=== PATIENT | female | born 1950 | race Caucasian/White ===

== ENCOUNTER 2021-03-28 13:45 | Inpatient (IN) | payer MEDICARE, OTHER, SELFPAY ==
[2021-03-28] VITALS (100 sets, daily range): BP systolic 119–158; BP diastolic 58–119; PULSE 66–127; RESP 12–29; TEMP 37.1; O2SAT 22–100; BMI 27.0
--- NOTE | 2021-03-28 13:47 | XACV_ITS ---
Exam Room: 2 Ht: 173 cm Wt: 81 kg BSA: 1.98 m2 Gender: Female : 1950 Exam Priority: Routine Procedure(s): Procedure Description: Diagnostic procedure Procedure Description: PCI procedure Procedure Description: Drug Eluting Coronary Stent Procedure Description: PTCA Procedure Description: Miscellaneous Procedure Description: ACT Procedure Description: Coronary Angiography Byron BLANCAS; Diagnostic Cath Status: Emergency Diagnostic Findings * Left Main has no disease. * Left Anterior Descending has no disease. * Circumflex has no disease. * Mid Right Coronary Artery: total occlusion, CHITO: 0 flow. * Coronary angiography shows right dominance. PCI Status: Emergency Interventional Findings * Mid Right Coronary Artery: 100% stenosis treated with a AB MINI TREK 2.00X15 RX BALLOON, MDLuz Castro JAYCEE 2.75X22 LUIS ALFREDO, and MDLuz HARDY EUPHORA RX [id number] BALLOON. 0% residual stenosis, CHITO: 3 flow. Conclusions 1. There is total occlusion coronary artery disease with one vessel disease. 2. Mid Right Coronary Artery was treated with a Balloon, Drug Eluting Stent, and Balloon. Recommendations * 1-Return to inpatient for close monitoring and routine cath care2-Risk factor modification for secondary prevention3-Statin and aspirin 81 mg life--long, if tolerated4-Patient was pre-loaded with 600 mg of Plavix, continue Plavix 75mg p.o. daily for at least one year. We will assess at the end of one year again to continue if further or not5-Continue optimal medical management6-Follow up with Dr. Matthews in four weeks and your primary care in 10 days. Interventional RX Recommendation: PCI w/o planned CABG Pressures Phase:Rest AO : 82 / 46 ( 60 ) @ 1:44:00 PM Clinical Evaluation EBL: 5mL-10mL Procedural Details Procedure Consent Obtained. Identified patient by full name and date of as verbalized by the patient/guarantor. Does the consent match the physician's order: Yes. Accurate & Complete Informed Consent: Yes. Visualize and Verify Site with Patient/Guarantor: N/A. Relevant Radiology Images available: N/A. Pre-op teaching completed and patient verbalized understanding. The risks, benefits, and alternatives of sedation and/or procedure were discussed by physician. The patient agrees to continue. Procedure started. [facility] Clinical Fraility Score: 4: Vulnerable. Commercial Service Technician Indications: ACS <= 24 hours. Chest Pain Symptom Assessment: Atypical Angina. Correct patient, site and procedure confirmed by cath team. Current diagnosis: STEMI. PERRLA. Strong, equal hand sas etl developer bilaterally. Lungs clear x 5 lobes. IV Site on Arrival: 20 gauge in the left anticubital. Oxygen started at 2liters/min via nasal canula. right radial was prepped with chloroprep then draped in the usual sterile fashion. right groin was prepped with chloroprep then draped in the usual sterile fashion. Baseline sample Acquired. HR: 66 BPM. Physician notified. Physician arrived. Physician scrubbed in. Immediate Pre-Procedure Time Out. Correct Patient: Yes; Correct Procedure: Yes; Correct Site: Yes; Correct Patient Position: Yes; Correct Supplies: Yes; Dried Flammable Prep: Yes; Blood Products Available: n/a. Lidocaine 1% infiltrated to the right radial. Arterial access obtained. PCI Indication: STEMI. Patient's family updated. 6 ivorian JR 4 SH guide catheter was inserted over the wire. ACT drawn. Results 147 seconds. Therapeutic limits - pre-heparin administration 90-150 seconds and monitoring heparin during a vascular procedure >250 seconds. Admit Source: Emergency department. Multiple views taken of right coronary artery. [place] guidewire was advanced through the guide catheter. Unable to cross lesion, cougar wire removed. Runthrough guidewire was advanced through the guide catheter to lesion in the mid RCA. [place] guidewire was advanced through the guide catheter to lesion in the distal RCA. Inflation number : 1 A AB MINI TREK 2.00X15 RX BALLOON was prepped and advanced across the Mid RCA , then inflated to 15 PRASHANT for 0:10seconds. Inflation number: 2 The AB MINI TREK 2.00X15 RX BALLOON was reinflated across the Mid RCA, to 15 PRASHANT for 0:10 seconds. Results checked. Balloon out. Balloon inserted to lesion in the mid LAD. Stent inserted to lesion in the mid RCA. Inflation Number : 3 A MDT R JAYCEE 2.75X22 LUIS ALFREDO -Lot Number# [id number] Exp 08/02/2022 was prepped and advanced across the Mid RCA. The stent was deployed at 16 PRASHANT for 0:17 seconds. Runthrough wire removed. Inflation number : 4 A MDT NC EUPHORA RX [id number] BALLOON was prepped and advanced across the Mid RCA , then inflated to 12 PRASHANT for 0:03 seconds. Inflation number: 5 The MDT NC EUPHORA RX 3.00Z17MH BALLOON was reinflated across the Mid RCA, to 12 PRASHANT for 0:05 seconds. Inflation number: 6 The MDT NC EUPHORA RX 3.97K06SS BALLOON was reinflated across the Mid RCA, to 12 PRASHANT for 0:02 seconds. Balloon out. Results checked. Stent balloon out over wire. Wire out. Balloon inserted to lesion in the mid LAD. Guide catheter out. A 5 ivorian JL4 catheter in over wire. Multiple views taken of left coronary artery. Catheter out. ACT drawn. Results 489 seconds. Therapeutic limits - pre-heparin administration 90-150 seconds and monitoring heparin during a vascular procedure >250 seconds. Wire out. A TR Band was successful obtaining hemostatsis at the Right Radial artery insertion site. PERRLA. Strong, equal hand sas etl developer bilaterally. No VTE prophylaxis required. Medication's Wasted: Lidocaine 1% = 18 mL. Medication's Wasted: Nitro = 49.8 mg. Medication's Wasted: Heparin = 2000 u. Total IV fluids: 250 mL. Post-op diagnosis: STEMI. Complications: none. Estimated blood loss: 5mL-10mL. Procedure completed. Patient transferred by bed to ICU. Vital chart was stopped. Access Site Site: Right Radial artery Sheath Size: 6 Fr Hemostasis Method: TR Band Hemostasis Success: Successful Procedure Medications Start: 2:21 PM Stop: 2:21 PM Medication: Fentanyl Amount: 50 mcg Start: 2:21 PM Stop: 2:21 PM Medication: Versed Amount: 1 mg Route: I.V. Start: 2:24 PM Stop: 2:24 PM Medication: Nitrogylcerin Amount: 200 mcg Route: I.A. Start: 2:31 PM Stop: 2:31 PM Medication: Heparin Amount: 4000 units Route: I.V. Start: 2:34 PM Stop: 2:34 PM Medication: Aggrastat 12.5 mg/250 mL Amount: 40 ml Route: I.V. bolus Start: 2:44 PM Stop: 2:44 PM Medication: 0.9% Saline Amount: 250 ml Route: I.V. bolus I, the attending physician, have reviewed and verified all procedure medications. Yes, all medications given per verbal order History/Risk Factors Hypertension: Yes Dyslipidemia: Yes Peripheral Arterial Disease (PAD): No Myocardial Infarction (SD): No Obesity: Yes Renal Disease: No Tobacco Use: Former Prior Interventions PCI: Yes CABG: No Valve Surgery: No Date of PCI: 05/30/1998 Report Signatures Finalized by Lucho Matthews MD on 04/12/2021 06:39 PM
--- NOTE | 2021-03-28 13:49 | ECG_ITS ---
[facility] Test Date: 2021-03-28 Pat Name: Kathy Mead Department: Room: Gender: Female Health And Safety Inspector: : 1950 Requested By: Javed Johnson Order Number: [id number] Reading MD: YOGESH CANTOR Measurements Intervals [place] Rate: 72 P: 51 CA: 174 QRS: 36 QRSD: 82 T: 88 QT: 374 QTc: 409 Interpretive Statements SINUS RHYTHM ST ELEVATION, CONSIDER LATERAL INJURY [MARKED ST ELEVATION W/O NORMALLY INFLECTED T-WAVE IN I/aVL/V5/V6] MARKED ST ELEVATION, CONSIDER INFERIOR INJURY [MARKED ST ELEVATION W/O NORMALLY INFLECTED T-WAVE IN II/aVF] ACUTE LA No previous ECG available for comparison Electronically Signed On 03-30-2021 0:11:53 CDT by YOGESH CANTOR [id number]
--- NOTE | 2021-03-28 13:53 | W.ED.CHESTPA ---
HPI - Chest Pain General: Chief Complaint: Chest Pain Stated Complaint: STEMI Time Seen by Provider: 03/28/21 13:48 History of Present Illness: HPI narrative: Ms. Mead is a 70-year-old lady with history of hypertension and possible hyperlipidemia who presents emergency department due to chest pain. She presents via EMS as a STEMI activation. Symptom onset was acute at approximately 1:10 PM. She notes chest pressure in the middle of her chest with radiation to left arm and left jaw. No other typical cardiac features associated with chest pain. Intensity of symptoms is moderate to severe. No improvement with nitro or Nitropaste. She did receive 2 doses of sublingual nitro and 1 inch of Nitropaste. She received 324 of aspirin. She was placed on supplemental oxygen for comfort though was not hypoxemic. No other specific exacerbating relieving factors. No history of similar. Recent history is notable for right hip surgery. This was approximately 1 week ago, expected postoperative course. She has been on Xarelto and has not missed any doses for prophylaxis secondary to surgery. History is otherwise limited by acuity of condition. Review of Systems General: Reports: 10 or more systems reviewed and unremarkable except in HPI and below [facility]: Medical History (Updated 03/30/21 @ 00:01 by ) Essential hypertension Surgical History (Updated 03/30/21 @ 00:01 by ) History of hip surgery Physical Exam Narrative: EXAM NARRATIVE: GENERAL/CONSTITUTIONAL - well-appearing. Uncomfortable due to chest pain Eyes - PERRL, no conjunctival injection ENMT - Atraumatic external nose and ears. Moist mucous membranes NECK - supple. trachea midline CARDIOVASCULAR - regular rate and rhythm. Peripheral pulses 2+ and equal RESPIRATORY -clear to auscultation bilaterally. No retractions or accessory muscle use. ABDOMEN/GI - Nontender/Nondistended. MSK - Extremities without obvious deformity or tenderness to palpation SKIN - Warm, Dry, mild pallor NEURO - alert and appropriately oriented. Moves all extremities equally. Course ED course: - Patient was seen and evaluated by me at bedside. STEMI activation by EMS. - Patient placed on cardiac monitors, IV access obtained - Initial evaluation notable for exam as noted above - Treatment per protocol - Cardiology at bedside for evaluation for STEMI - Patient to be taken emergently to [facility] - Transported to [facility] emergently without acute decompensation or further intervention required in the emergency department Vital Signs: Vital signs: Vital Signs Temperature 97.8 F 03/29/21 15:55 Pulse Rate 95 03/29/21 15:55 Respiratory Rate 18 03/29/21 15:55 Blood Pressure 149/77 03/29/21 15:55 Pulse Oximetry 98 03/29/21 15:55 MDM - Chest Pain Medical Records: Attestation: I reviewed the patient's medical records. Lab Data: Attestation: I reviewed the patient's lab results. Labs: Lab Results 03/28/21 03/28/21 03/28/21 13:48 13:48 13:48 WBC 11.4 10^3/uL H 10 ^3/uL (4.0-10.0) RBC 3.59 10^6/uL L 10 ^6/uL (4.1-5.3) Hgb 10.6 g/dL L g/dL (11.5-15.3) Hct 34.5 % L % (37.0-47.0) MCV 96.1 fl fl (81-99) MCH 29.5 pg pg (28.0-34.0) MCHC 30.7 g/dL g/dL (30.0-36.0) RDW 13.0 % % (12.1-15.1) Plt Count 490 10^3/cmm H 10 ^3/cmm (130-400) MPV 8.9 fL fL (7.4-10.4) Neut % (Auto) 69.5 % % Lymph % (Auto) 19.1 % % Wetzel % (Auto) 8.9 % % Eos % (Auto) 1.6 % % Baso % (Auto) 0.5 % % Neut # (Auto) 7.91 10^3/uL H 10 ^3/uL (1.8-7.7) Lymph # (Auto) 2.2 10^3/uL 10^3/ uL (0.8-4.8) Wetzel # (Auto) 1.0 10^3/uL H 10^ 3/uL (0.2-0.9) Eos # (Auto) 0.2 10^3/uL 10^3/ uL (0.0-0.8) Baso # (Auto) 0.1 10^3/uL 10^3/ uL (0.0-0.1) Nucleated RBC % (a uto) 0 % % Nucleated RBCs # 0.0 /100WBC /100W BC PT 13.70 SECONDS SEC ONDS (12.1-14.9) INR 1.02 (0.8-1.2) APTT 58.7 SECONDS H SE CONDS (23.9-36.7) Sodium 141 mmol/L mmol/L (136-145) Potassium 4.2 mmol/L mmol/L (3.5-5.1) Chloride 103 mmol/L mmol/L (98-107) Carbon Dioxide 25 mmol/L mmol/L (22-29) Anion Gap 17.2 (5-19) BUN 13 mg/dL mg/dL (8-23) Creatinine 0.5 mg/dL mg/dL (0.5-0.9) GFR Calculation 122.0 mL/min mL/m in (90-130) Glucose 102 mg/dL mg/dL (65-115) Calculated Osmolal ity 292 mOsm/kg mOsm/ kg (285-295) Calcium 9.4 mg/dL mg/dL (8.5-10.5) Total Bilirubin 0.5 mg/dL mg/dL (0.15-1.2) AST 30 U/L U/L (0-32) ALT 31 U/L U/L (0-33) Alkaline Phosphata se 143 IU/L H IU/L (35-105) Troponin T Baselin e Total Protein 6.5 g/dL L g/dL (6.6-8.7) Albumin 3.7 g/dL g/dL (3.5-5.2) Globulin 2.8 g/dL g/dL (1.3-4.6) 03/28/21 13:48 WBC RBC Hgb Hct MCV MCH MCHC RDW Plt Count MPV Neut % (Auto) Lymph % (Auto) Wetzel % (Auto) Eos % (Auto) Baso % (Auto) Neut # (Auto) Lymph # (Auto) Wetzel # (Auto) Eos # (Auto) Baso # (Auto) Nucleated RBC % (a uto) Nucleated RBCs # PT INR APTT Sodium Potassium Chloride Carbon Dioxide Anion Gap BUN Creatinine GFR Calculation Glucose Calculated Osmolal ity Calcium Total Bilirubin AST ALT Alkaline Phosphata se Troponin T Baselin e 153 ng/L H* ng/L (0-10) Total Protein Albumin Globulin EKG Data^: EKG 1: Attestation: I personally reviewed and interpreted this EKG as follows: EKG interpretation date: 03/28/21 EKG interpretation time: 13:50 Ischemic changes: acute STEMI Interpretation: Twelve-lead EKG shows a regular rhythm at a rate of 72 CO interval 174, QRS duration 82, QTc 397 Normal axis Interpretation: Acute STEMI, inferior region with reciprocal changes Discharge Plan Discharge Patient Disposition: Admitted As Inpatient Admit Provider: Lucho Matthews Condition: Stable Discharge Diet: Cardiac Coding Level of Care Code ED Real Estate Loan Processor for Chg Joann
[2021-03-28 14:01] LABS: Basophils # 0.1 10^3/uL (0.0-0.1); Basophils % 0.5 %; Eosinophils # 0.2 10^3/uL (0.0-0.8); Eosinophils % 1.6 %; Hematocrit 34.5 % (37.0-47.0); Hemoglobin 10.6 g/dL (11.5-15.3); Lymphocytes # 2.2 10^3/uL (0.8-4.8); Lymphocytes % 19.1 %; Mean Corpuscular HGB Conc 30.7 g/dL (30.0-36.0); Mean Corpuscular Hemoglobin 29.5 pg (28.0-34.0); Mean Corpuscular Volume 96.1 fl (81-99); Mean Platelet Volume 8.9 fL (7.4-10.4); Monocytes % 8.9 %; Neutrophils # 7.91 10^3/uL (1.8-7.7); Neutrophils % 69.5 %; Nucleated Red Blood Cells % 0 %; Platelet Count 490 10^3/cmm (130-400); Red Blood Count 3.59 10^6/uL (4.1-5.3); White Blood Count 11.4 10^3/uL (4.0-10.0)
[2021-03-28] MEDS: sodium chloride 0.9% 1,000 ML 999 ML IV (14:01)
[2021-03-28] MEDS: fentaNYL 50 mcg/mL INJ 2mL IVP (14:01)
[2021-03-28] MEDS: heparin 5,000 unit/mL INJ 1 mL 4000 UNIT IVP (14:02)
[2021-03-28] MEDS: clopidogrel 300 mg Tablet 600 MG PO (14:02)
--- NOTE | 2021-03-28 14:09 | PM.HP ---
Providers/Chief Complaint Chief Complaint: STEMI History of Present Illness Kathy Mead is a 70 year old female past medical history significant for coronary artery disease status post history of stent to RCA in 1998, hypertension hyperlipidemia history of tobacco abuse in the past quit many years ago few days ago she underwent hip surgery for a broken hip today while getting out of the shower she started noticing chest pain which increased in intensity frequency and duration minute become constant she called 911 initial strip recorded by EMS showed ST elevation in the inferior lead with reciprocal changes and bradycardia. According to patient she is on rivaroxaban after hip surgery last dose taken was yesterday. She was given 325 mg of aspirin. We will load her with Plavix, given 4000 mg of heparin. I will take her directly to the [facility] it appeared to me that she has a occluded RCA. Medications/Allergies Allergies Allergy/AdvReac Type Severity Reaction Status Date / Time codeine Allergy ALGY-Anaphy Verified 03/28/21 13:50 laxis PFSH Acute PFSH: Medical History (Updated 03/28/21 @ 14:12 by Lucho Matthews MD) Essential hypertension Vitals/I&O/Wt Last Vital Signs Temp 98.7 F 03/28/21 13:50 Pulse 67 03/28/21 13:57 Resp 24 H 03/28/21 14:01 BP 119/81 03/28/21 13:57 Pulse Ox 97 03/28/21 13:57 Weight last 48 hrs Weight 178 lb Physical Exam Narrative: EXAM NARRATIVE: GENERAL: Patient is alert, awake and oriented x3. Patient is moderate distress NECK: No jugular vein distension. HEENT: No cyanosis. No icterus. No pallor. HEART: Regular S1 and S2. No murmur, rub or gallop. LUNGS: Clear to auscultate bilaterally. ABDOMEN: Soft, nontender and nondistended. Positive bowel sounds. No guarding, rebound or tenderness. CENTRAL NERVOUS SYSTEM: Grossly nonfocal. EXTREMITIES: Lower extremities without edema bilaterally. Pulses palpable in the lower extremities, both dorsalis pedis and posterior tibial. Data : 03/28/21 13:48 03/28/21 13:48 A&P Assessment and plan (1) ST elevation myocardial infarction (STEMI) of inferior wall: Patient has inferior wall ST elevation NV. We will take her to the [facility] urgently. She was bradycardic initially but appeared to be in sinus rhythm now. Patient has been explained all risk benefit and alternative for the procedure by myself. She understand risk of major minor bleed urgent emergent surgery including bypass and vascular, risk of stroke head bleed GI bleed risk for transfusion contrast-induced nephropathy pseudoaneurysm hematoma and infection. She is a candidate for DAPT. She denies any prior history of bleeding. Further plan will be devised as per progress of the patient Status: Acute (2) Essential hypertension: At the moment it is stable and well-controlled Status: Acute (3) History of hip surgery: As per surgical instruction. Status: Acute Attestations Medical Necessity Statement*: I am expecting her stay to cross more than 2 midnights Coding Level of Care Code New Pt Acute Patient Scheduler for baljit David Patient Type New History Comprehensive Exam Comprehensive Medical Decision Making High Complexity Diagnoses ST elevation myocardial infarction (STEMI) of inferior wall I21.19 Essential hypertension I10 History of hip surgery Z98.890
--- NOTE | 2021-03-28 14:10 | PC.NURSE ---
patient to cathlab at this time.
[2021-03-28 14:17] LABS: INR 1.02 (0.8-1.2)
[2021-03-28 14:19] LABS: Partial Thromboplastin Time 58.7 SECONDS (23.9-36.7)
[2021-03-28 14:23] LABS: Alanine Aminotransferase 31 U/L (0-33); Albumin Level 3.7 g/dL (3.5-5.2); Alkaline Phosphatase 143 IU/L (35-105); Anion Gap 17.2 (5-19); Aspartate Amino Transferase 30 U/L (0-32); Blood Urea Nitrogen 13 mg/dL (8-23); Calcium 9.4 mg/dL (8.5-10.5); Carbon Dioxide 25 mmol/L (22-29); Chloride 103 mmol/L (98-107); Globulin 2.8 g/dL (1.3-4.6); Glucose 102 mg/dL (65-115); Osmolality Calculated 292 mOsm/kg (285-295); Potassium 4.2 mmol/L (3.5-5.1); Sodium 141 mmol/L (136-145); Total Bilirubin 0.5 mg/dL (0.15-1.2); Total Protein 6.5 g/dL (6.6-8.7)
[2021-03-28 14:25] LABS: Troponin(5th) Baseline 153 ng/L (0-10)
[2021-03-28] MEDS: sodium chloride 0.9% 1,000 ML 100 ML IV (15:48)
--- NOTE | 2021-03-28 15:49 | ECG_ITS ---
[facility] Test Date: 2021-03-28 Pat Name: Kathy Mead Department: Room: ICU01 Gender: Female Social Service Manager: : 1950 Requested By: Javed Johnson Order Number: [id number] Reading MD: YOGESH CANTOR Measurements Intervals [place] Rate: 76 P: 12 WV: 176 QRS: 8 QRSD: 85 T: 31 QT: 398 QTc: 449 Interpretive Statements SINUS RHYTHM PROBABLE INFERIOR MYOCARDIAL INFARCTION , OF INDETERMINATE AGE [35 ms Q WAVE IN II/aVF] Compared to ECG 03/28/2021 13:49:01 ST (T wave) deviation no longer present Myocardial infarct finding still present Electronically Signed On 03-30-2021 0:17:41 CDT by YOGESH CANTOR [id number]
[2021-03-28] MEDS: atorvastatin 40 mg Tablet PO (15:52)
--- NOTE | 2021-03-28 15:56 | PC.NURSE ---
1525 Pt arrived to ICU 1 via bed with cath lab radiological technologist staff at bedside. PT connected to ICU monitor. Pt AAOx4, makes all needs known. TR band in place to R radial. Area c/d/i, pulses palpable. Orders to release pressure starting around 1700 from TR band. IVF infusing at 150ml/h, decreased to 100ml/h per MD orders. Pt able to answer all questions. Glasses, dentures and wallet to be kept at bedside. Pt advised to send wallet and medications home but would like to keep wallet with her. Dressing to R hip from hip surgery approx 1 week ago, c/d/i. Pt denies CP, c/o mild hip pain 07/09. No other issues noted. Will monitor.
[2021-03-28 16:58] LABS: Troponin 5 2HR 470.7 ng/L (0-10); Troponin 5 2HR Delta 317.7 ABS# (0-10)
[2021-03-28] MEDS: acetaminophen 325 mg Tablet 650 MG PO (17:49)
--- NOTE | 2021-03-28 17:55 | PC.NURSE ---
Shift Note Frequent safety and comfort rounds continue. Orders and/or nursing care completed as indicated. Patient monitored for response to intervention and treatment(s). Education provide includes treatment plan, TR band info, and medication regimen. Pt verbalizes understanding. Vital sign charted per flowsheet. Assessment of TR band charted, 2ml air let out of band q15min per protocol. No issues noted. Will continue to monitor.
--- NOTE | 2021-03-28 18:56 | PC.NURSE ---
TR band removed at this time. No bleeding or hematoma noted
[2021-03-28 20:44] LABS: Troponin 5 6HR 1120 ng/L (0-10)
[2021-03-28 20:45] LABS: Troponin 5 6HR Delta 967 ng/L (0-12)
[2021-03-29] VITALS (37 sets, daily range): BP systolic 134–156; BP diastolic 62–92; PULSE 76–96; RESP 9–27; TEMP 36.6–37; O2SAT 92–99
[2021-03-29] MEDS: sodium chloride 0.9% 1,000 ML 100 ML IV (00:34)
[2021-03-29 05:09] LABS: Basophils # 0.1 10^3/uL (0.0-0.1); Basophils % 0.6 %; Eosinophils # 0.2 10^3/uL (0.0-0.8); Hematocrit 29.1 % (37.0-47.0); Hemoglobin 9.1 g/dL (11.5-15.3); Lymphocytes # 1.7 10^3/uL (0.8-4.8); Lymphocytes % 18.5 %; Mean Corpuscular HGB Conc 31.3 g/dL (30.0-36.0); Monocytes # 0.8 10^3/uL (0.2-0.9); Monocytes % 8.8 %; Neutrophils # 6.27 10^3/uL (1.8-7.7); Neutrophils % 69.7 %; Nucleated Red Blood Cells % 0 %; Platelet Count 281 10^3/cmm (130-400); Red Blood Count 3.03 10^6/uL (4.1-5.3); Red Cell Distribution Width 13.2 % (12.1-15.1)
[2021-03-29 05:26] LABS: Anion Gap 13.2 (5-19); Blood Urea Nitrogen 13 mg/dL (8-23); Calcium 9.1 mg/dL (8.5-10.5); Carbon Dioxide 24 mmol/L (22-29); Chloride 106 mmol/L (98-107); Glucose 91 mg/dL (65-115); Osmolality Calculated 288 mOsm/kg (285-295); Potassium 4.2 mmol/L (3.5-5.1); Sodium 139 mmol/L (136-145)
[2021-03-29 05:55] LABS: Troponin T (5th) Once 877 ng/L (0-10)
--- NOTE | 2021-03-29 06:22 | PC.NURSE ---
Shift Note Frequent safety and comfort rounds continue. Orders and/or nursing care completed as indicated. Patient monitored for response to intervention and treatment(s). Education provided includes medications with side effects, fall safety, post-op care and precautions, S/S to report. Patient and/or vaccine customer representative verbalized understanding of education. Patient without SOB and CP, radial site soft, without redness or warmth. Patient up to BSC to void. Will continue to monitor.
[2021-03-29] MEDS: clopidogrel 75 mg Tablet PO (08:31)
[2021-03-29] MEDS: aspirin 81 mg EC Tablet PO (08:31)
--- NOTE | 2021-03-29 09:33 | PC.NURSE ---
daughters called concerned about health and mental status and care of significant other at home toward her .. call refered to high school social studies tutor at this time
--- NOTE | 2021-03-29 11:03 | USR_ITS ---
PROCEDURE INFORMATION: Exam: US Duplex Lower Extremity Veins, Bilateral Exam date and time: 03/29/2021 11:03 AM Age: 70 years old Clinical indication: Pain; Leg, upper; Prior surgery; Surgery date: Post-operative (0-2 days); Surgery type: Right hip replacement; Additional info: Check clot/ dvt, order clarified with Dr copeland TECHNIQUE: Imaging protocol: Real-time duplex ultrasound of the extremities with 2-D ho scale, color Doppler flow and spectral waveform analysis with image documentation. Complete exam focused on the bilateral lower extremity veins. COMPARISON: US ROR venous duplex LE LT 04/01/2016 1:18 PM FINDINGS: Right deep veins: Unremarkable. The common femoral, femoral, proximal profunda femoral, popliteal, posterior tibial and peroneal veins are patent without thrombus. Normal Doppler waveforms. Normal compressibility and/or augmentation response. Right superficial veins: Saphenofemoral junction is patent without thrombus. Left deep veins: Unremarkable. The common femoral, femoral, proximal profunda femoral, popliteal, posterior tibial and peroneal veins are patent without thrombus. Normal Doppler waveforms. Normal compressibility and/or augmentation response. Left superficial veins: Saphenofemoral junction is patent without thrombus. Soft tissues: Unremarkable. US/[place] [id number] IMPRESSION: No sonographic evidence of deep vein thrombosis. Radiation Dose CTDIVOL = (mGy): DLP = (mGy-cm)
--- NOTE | 2021-03-29 11:05 | USCV_ITS ---
Kathy Mead Age: 70 Gender: F : 1950 Exam Date: 03/29/2021 12:59 Ordering Phys: Lucho Matthews MD ([email or web address]) Technologist: Maddie Downey Exam Location: [facility] – [place] Indication: POST STEMI BP: / HR: Rhythm: Sinus Technical Quality: Adequate MEASUREMENTS (Male / Female) Normal Values 2D ECHO LV Diastolic Diameter PLAX 2.5 cm 4.2 - 5.9 / 3.9 - 5.3 cm LV Systolic Diameter PLAX 1.7 cm LV Chamber Size 3.8 cm IVS Diastolic Thickness 1.5 cm 0.6 - 1.0 / 0.6 - 0.9 cm IVS Systolic Thickness 1.9 cm LVPW Diastolic Thickness 0.9 cm 0.6 - 1.0 / 0.6 - 0.9 cm LVPW Systolic Thickness 0.9 cm RV Chamber Size 2.7 cm LVOT Diameter 1.9 cm LV Ejection Fraction 2D Teich 61.1 % LV Ejection Fraction MOD 2C 70.3 % LV Ejection Fraction 2C AL 70.0 % LA Diameter 2.7 cm LA Width 2.8 cm LA Height 5.5 cm RA Width 2.9 cm RA Height 4.7 cm Aorta at Sinotubular Diameter 2.3 cm M-MODE LV Diastolic Diameter MM 4.8 cm 4.2 - 5.9 / 3.9 - 5.3 cm LV Systolic Diameter MM 3.1 cm LV Ejection Fraction MM Teich 64.2 % IVS Diastolic Thickness MM 1.2 cm 0.6 - 1.0 / 0.6 - 0.9 cm IVS Systolic Thickness MM 1.4 cm LVPW Diastolic Thickness MM 1.2 cm 0.6 - 1.0 / 0.6 - 0.9 cm LVPW Systolic Thickness MM 1.7 cm RV Diastolic Diameter MM 0.7 cm Aortic Annulus Diameter 3.3 cm LA Ao Ratio MM 1.0 MV E Point Septal Separation 0.7 cm DOPPLER AV Peak Velocity 149.0 cm/s LVOT Peak Velocity 132.0 cm/s AV Area Cont Eq vti 2.2 cm squared AV Area Cont Eq pk 2.4 cm squared MV Area PHT 3.7 cm squared Mitral E to A Ratio 0.7 MV E' Velocity 50.0 cm/s Mitral E to MV E' Ratio 10.9 Mitral E to LV E' Lateral Ratio 8.3 Mitral E to LV E' Septal Ratio 15.8 TV Peak E Velocity 68.0 cm/s Right Atrial Pressure 3.0 mmHg PV Peak Velocity 88.0 cm/s RV Acceleration Time 0.1 s RV Ejection Time 0.3 s RV AcT/ET 0.3 FINDINGS Left Ventricle Normal left ventricular cavity size. There appeared to be inferior wall hypokinesis.left ventricular ejection fraction is estimated at 60 %. Grade I/IV diastolic dysfunction (abnormal relaxation filling pattern), normal to mildly elevated filling pressures. Right Ventricle The right ventricle is normal in size and function. RVSP could not be calculated due to incomplete tricuspid regurgitation velocity profile. Right Atrium The right atrium is normal in size. Left Atrium The left atrium is normal in size. Mitral Valve Moderately thickened mitral valve. Mild mitral annular calcification. No mitral valve stenosis. Mild mitral valve regurgitation. Aortic Valve Moderate aortic valve calcification. Aortic valve stenosis. Trace aortic valve regurgitation. Tricuspid Valve Structurally normal tricuspid valve without significant stenosis or regurgitation. Pulmonic Valve Structurally normal pulmonic valve without significant stenosis. There is no pulmonic regurgitation. Pericardium Normal pericardium without effusion. Aorta Normal ascending aorta dimension. CONCLUSIONS 1-Normal left ventricular cavity size. There appeared to be inferior wall hypokinesis.left ventricular ejection fraction is estimated at 60 %. Grade I/IV diastolic dysfunction (abnormal relaxation filling pattern), normal to mildly elevated filling pressures. 2-Moderate aortic valve calcification. Aortic valve stenosis. Trace aortic valve regurgitation. 3-Moderately thickened mitral valve. Mild mitral annular calcification. No mitral valve stenosis. Mild mitral valve regurgitation. 4-There is no pericardial effusion. 5-The right ventricle is normal in size and function. RVSP could not be calculated due to incomplete tricuspid regurgitation velocity profile. 6-Right atrial pressure is around 5 mm of mercury. 7-There are no prior echocardiogram studies to compare. Lucho Matthews MD (Electronically Signed) Final Date: 29 March 2021 14:50 S
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
--- NOTE | 2021-03-29 14:51 | PM.DCS ---
Discharge Providers Date of Admission: 03/28/21 15:13 Date of Discharge: March 29, 2021 Attending Provider at Admission: Lucho Matthews MD Attending Provider at Discharge: Lucho Matthews MD Primary Care Provider: Meet Rizzo MD Diagnoses at Discharge Discharge Diagnosis (1) ST elevation myocardial infarction (STEMI) of inferior wall: Status: Resolved (2) Essential hypertension: Status: Acute (3) History of hip surgery: Reason for Visit Reason for Visit: STEMI Hospital Course Hospital Course 71-year-old female past medical history significant for history of coronary artery disease with history of stent to RCA in 1998 underwent hip surgery few days back for which she was started on anticoagulation prophylactically. Yesterday patient presented to the ER with chest pain noted to have inferior ST elevation FL with reciprocal changes. She was taken to Polysomnography Technologist RCA was occluded in the mid it was treated with balloon angioplasty followed by drug-eluting stent and postdilated with noncompliant balloon. Post PCI patient did fine from cardiovascular perspective. Her medicine were optimized. She is moving around without any complaint. She is being discharged home. Physical Exam Narrative: EXAM NARRATIVE: GENERAL: Patient is alert, awake and oriented x3. NECK: No jugular vein distension. HEENT: No cyanosis. No icterus. No pallor. HEART: Regular S1 and S2. No murmur, rub or gallop. LUNGS: Clear to auscultate bilaterally. ABDOMEN: Soft, nontender and nondistended. Positive bowel sounds. No guarding, rebound or tenderness. CENTRAL NERVOUS SYSTEM: Grossly nonfocal. EXTREMITIES: Lower extremities without edema bilaterally. Pulses palpable in the lower extremities, both dorsalis pedis and posterior tibial. Discharge Data Data Completed and Pending: Completed Studies During Hospitalization Category [place] [id number] Routin e Ultrasound 03/29/21 11:03 Completed Pending at discharge Category Date Time Status TIE BU[employer]ER request for service Stat Exams 03/28/21 13:47 Taken CV echo complete* [id number] Routine Ultrasound 03/29/21 11:05 Taken Labs from last 24 hours 03/29/21 03/29/21 03/29/21 04:05 04:05 04:05 WBC 9.0 RBC 3.03 L Hgb 9.1 L Hct 29.1 L MCV 96.0 MCH 30.0 MCHC 31.3 RDW 13.2 Plt Count 281 D MPV 9.0 Neut % (Auto) 69.7 Lymph % (Auto) 18.5 [place] % (Auto) 8.8 Eos % (Auto) 2.0 Baso % (Auto) 0.6 Neut # (Auto) 6.27 Lymph # (Auto) 1.7 [place] # (Auto) 0.8 Eos # (Auto) 0.2 Baso # (Auto) 0.1 Nucleated RBC % (a uto) 0 Nucleated RBCs # 0.0 Sodium 139 Potassium 4.2 Chloride 106 Carbon Dioxide 24 Anion Gap 13.2 BUN 13 Creatinine 0.5 GFR Calculation 122.0 Glucose 91 Calculated Osmolal ity 288 Calcium 9.1 Troponin T Gen 5 n g/L 877 H* Troponin T 120 Min modoc Delta Troponin T Troponin T Hi Sens 6Hr Troponin T Hi Sens 6Hr Delta 03/28/21 03/28/21 20:02 16:15 WBC RBC Hgb Hct MCV MCH MCHC RDW Plt Count MPV Neut % (Auto) Lymph % (Auto) [place] % (Auto) Eos % (Auto) Baso % (Auto) Neut # (Auto) Lymph # (Auto) [place] # (Auto) Eos # (Auto) Baso # (Auto) Nucleated RBC % (a uto) Nucleated RBCs # Sodium Potassium Chloride Carbon Dioxide Anion Gap BUN Creatinine GFR Calculation Glucose Calculated Osmolal ity Calcium Troponin T Gen 5 n g/L Troponin T 120 Min modoc 470.7 H Delta Troponin T 317.7 H* Troponin T Hi Sens 6Hr 1120 H Troponin T Hi Sens 6Hr Delta 967 H* Vitals: Last Vital Signs Temp 97.8 F 03/29/21 05:15 Pulse 89 03/29/21 13:00 Resp 23 H 03/29/21 13:00 BP 136/62 03/29/21 13:00 Pulse Ox 98 03/29/21 08:00 Discharge Plan Discharge Patient Disposition: Home Health Service Condition: Stable Prescriptions: New clopidogrel 75 mg Tablet 75 mg PO DAILY Qty: 90 RF: 3 aspirin 81 mg Tablet,Delayed Release (Dr/Ec) 81 mg PO DAILY Qty: 90 RF: 3 metoprolol succinate 25 mg tablet extended release 24 hr 12.5 mg PO DAILY Qty: 30 RF: 4 Continued oxycodone-acetaminophen 5-325 mg tablet 1 tab PO 5XD PRN (Reason: Pain) RF: 0 Tremfya 100 mg/mL syringe 100 mg SUBCUT .EVERY 8 WEEKS RF: 0 Discontinued Xarelto 10 mg tablet 10 mg PO DAILY RF: 0 No Action rosuvastatin [Crestor] 40 mg tablet 40 mg PO DAILY RF: 0 Discharge Orders: Discharge Order (Routine); Ordered 03/29/21 Ordered By: Lucho Matthews Referrals: [facility] [Outside] Luna Warner FNP [Nurse Practitioner] - 04/06/21 1:15 pm Discharge Diet: Cardiac Patient Instructions: Opioid Safety Activity Restrictions/Additional Instructions: Follow-up with Dr. Matthews in 4 weeks, follow-up with Ms. Luna Warner in 7 days, follow-up with primary care physician as scheduled Discharge Attestations Time Spent in Discharge Care*: greater than 30 min Specific Discharge Activities: educating and/or supporting family/caregiver Quality Metrics Clinical Quality Measures During this hospital stay, did patient experience: AMI Clinical Trial Participant: No Contraindication to aspirin (AMI): Aspirin given Contraindication to statin: Statin prescribed Coding Level of Care Code Established Pt Acute Chg FW DC note Patient Type Established History Detailed Exam Detailed Medical Decision Making Moderate Complexity Diagnoses ST elevation myocardial infarction (STEMI) of inferior wall I21.19 Essential hypertension I10 History of hip surgery Z98.890
--- NOTE | 2021-03-31 14:36 | PC.SOCIAL ---
Addendum entered by Oliva Bullard RN 04/02/21 08:23: Records have been sent to Medical records to be scanned in. Patient indicates she has taken care of ortho appointment nothing further needed by this nurse at this time. Patient called yesterday to provide this information. Original Note: [facility] and unfortunately nothing can be done to expedite request. they do have the request and will be worked on but they are backed up. Also sent request for medical records to [facility] and asked records to be expedited back. Updated patient of all the above and she verbalized understanding.
== END 2021-03-29 16:00 | disposition home health service (06) | DRG 247 ==
LOC: ER 13:52 → CCL 14:15 → ICU 15:14
PROVIDERS: Admitting Provider Internal Medicine Cardiovascular Disease; Emergency Provider Emergency Medicine; PCP Family Medicine; Visit Provider Internal Medicine Cardiovascular Disease
PROC: 027034Z Dilation of Coronary Artery, One Artery with Drug-eluting Intraluminal Device, Percutaneous Approach (ICD-10-PCS; principal; 2021-03-28 13:30)
PROC: 027034Z Dilation of Coronary Artery, One Artery with Drug-eluting Intraluminal Device, Percutaneous Approach (ICD-10-PCS; 2021-03-28 13:30)
DX: I21.11 ST elevation (STEMI) myocardial infarction involving right coronary artery (principal); I25.10 Atherosclerotic heart disease of native coronary artery without angina pectoris; Z95.5 Presence of coronary angioplasty implant and graft; I10 Essential (primary) hypertension; E78.5 Hyperlipidemia, unspecified; Z87.891 Personal history of nicotine dependence; Z98.890 Other specified postprocedural states
CPT/HCPCS: 36415; 80048; 80053; 84484; 85025; 85347; 85610; 85730; 93005; 93306; 93454; 93970; 96374; 96375; 99285; C1725; C1769; C1874; C1887; C1894; C9600; J1644; J2250; J3010; J3246; J3490; J7030; Q9967

== ENCOUNTER → 2021-04-06 14:50 | Outpatient (BNVA) | payer MEDICARE, OTHER, SELFPAY | PROVIDERS: PCP Family Medicine; Visit Provider Nurse Practitioner Family | DX: I25.10 Atherosclerotic heart disease of native coronary artery without angina pectoris (principal) | CPT/HCPCS: 80048; 85025 ==

== ENCOUNTER → 2021-06-09 14:55 | Outpatient (BNVA) | payer MEDICARE, OTHER, SELFPAY | PROVIDERS: PCP Family Medicine; Visit Provider Internal Medicine Cardiovascular Disease | DX: I25.10 Atherosclerotic heart disease of native coronary artery without angina pectoris (principal); I10 Essential (primary) hypertension | CPT/HCPCS: 85025 ==

== ENCOUNTER → 2021-06-16 16:45 | Outpatient (BNVA) | payer MEDICARE, OTHER, SELFPAY | PROVIDERS: PCP Family Medicine; Visit Provider Nurse Practitioner Family | DX: Z20.822 Contact with and (suspected) exposure to COVID-19 (principal) | CPT/HCPCS: 87635 ==

== ENCOUNTER → 2021-07-15 00:01 | Outpatient (BNVA) | payer MEDICARE, OTHER, SELFPAY | PROVIDERS: PCP Family Medicine; Visit Provider Family Medicine | DX: I10 Essential (primary) hypertension (principal); G11.9 Hereditary ataxia, unspecified; R41.3 Other amnesia; E66.9 Obesity, unspecified; I25.10 Atherosclerotic heart disease of native coronary artery without angina pectoris | CPT/HCPCS: 84443 ==

== ENCOUNTER 2021-07-27 12:17 | Outpatient (CLI) | payer MEDICARE, OTHER, SELFPAY ==
--- NOTE | 2021-07-27 12:30 | CT_ITS ---
WS: [id number] CT HEAD TECHNIQUE: Noncontrast CT of the head obtained from the skullbase to the vertex. CLINICAL INFORMATION: G11.9 - Hereditary ataxia, unspecified COMPARISON: None. DLP: 1029.[address] scans at [facility] use at least one of these dose optimization techniques: automated e xposure control; mA and/or kV adjustment per patient size (includes targeted exams where dose is matc hed to clinical indication); or iterative reconstruction. FINDINGS: No evidence of intracranial hemorrhage or mass effect. Ventricular system and basal cisterns are mendoza nt. Moderate small vessel changes with moderate parenchymal volume loss. Intracranial vascular calcif ication. No extra-axial fluid collections. No evidence of mass or mass effect. Paranasal sinuses and mastoid air cells are well aerated. .Normal visualized soft tissues. CT/CT head wo con* [id number] IMPRESSION: 1. No evidence of intracranial hemorrhage or mass effect. 2. Moderate small vessel changes. Moderate parenchymal volume loss. 3. No acute intracranial findings.
== END 2021-07-27 12:18 | disposition home or self-care (01) ==
LOC: RAD 12:23
PROVIDERS: PCP Family Medicine; Visit Provider Family Medicine
DX: G11.9 Hereditary ataxia, unspecified (principal)
CPT/HCPCS: 70450

== ENCOUNTER → 2022-10-28 13:37 | Outpatient (BNVA) | payer MEDICARE, OTHER, SELFPAY | PROVIDERS: PCP Family Medicine; Visit Provider Family Medicine | DX: F41.9 Anxiety disorder, unspecified (principal); E66.9 Obesity, unspecified; I10 Essential (primary) hypertension; I25.10 Atherosclerotic heart disease of native coronary artery without angina pectoris; L60.4 Beau's lines | CPT/HCPCS: 80048; 80061; 83036; 84443; 85025 ==

== ENCOUNTER 2023-09-21 10:44 | Outpatient (CLI) | payer MEDICARE, OTHER, SELFPAY ==
--- NOTE | 2023-09-21 10:50 | MM_ITS ---
WS: [id number] BILATERAL SCREENING DIGITAL TOMOSYNTHESIS MAMMOGRAM WITH CAD HISTORY: SCREENING COMPARISON: None available. Bilateral CC and MLO views with tomosynthesis and synthetic mammography submitted. Computer aided det ection analyzed. Breast composition: The breasts are heterogeneously dense, which may obscure small masses. No suspici ous masses, microcalcifications or architectural distortion. Benign calcifications. Asymmetries are n oted bilaterally. No distortion. IMPRESSION: MM/[place] [id number] BI-RADS: 2-Benign FOLLOW UP: 1 Year Follow-up
== END 2023-09-21 10:45 | disposition home or self-care (01) ==
PROVIDERS: PCP Physician Assistant; Visit Provider Physician Assistant
DX: Z12.31 Encounter for screening mammogram for malignant neoplasm of breast (principal)
CPT/HCPCS: 77063; 77067

== ENCOUNTER 2024-03-23 14:04 | Emergency (ER) | payer MEDICARE, OTHER, SELFPAY ==
--- NOTE | 2024-03-23 14:06 | USCV_ITS ---
Kathy Mead Age: 73 Gender: F : 1950 Exam Date: 03/23/2024 15:10 Ordering Phys: Pérez Anna MD Technologist: Exam Location: [facility] [place] Indication: lt leg pain and swelling PROCEDURES: Venous duplex imaging was performed in only the left lower extremity. The following venous structures were evaluated: common femoral vein, profunda vein, proximal portion of the greater saphenous vein, superficial femoral vein, and the popliteal vein. In addition, the posterior tibial and peroneal trunk were evaluated. FINDINGS: There is non occluding dvt in the lt Pop and lt Perineal trunk. The rest of the veins are normal CONCLUSIONS Non occlusive DVT Left popliteal and Left peroneal trunk Remainder patent Prelim to Dr Anna at time of examination Riley Martinez MD (Electronically Signed) Final Date: 23 March 2024 16:00 S
[2024-03-23 14:36] VITALS: BP 138/86; PULSE 78; RESP 18; TEMP 36.9; O2SAT 95
[2024-03-23 15:35] LABS: Basophils % 0.5 %; Eosinophils # 0.3 10^3/uL (0.0-0.8); Eosinophils % 3.2 %; Hematocrit 39.1 % (36-47); Lymphocytes # 1.3 10^3/uL (0.8-4.8); Mean Corpuscular HGB Conc 31.5 g/dL (30-55); Mean Corpuscular Hemoglobin 30.1 pg (27-33); Mean Corpuscular Volume 95.6 fl (85-98); Mean Platelet Volume 8.5 fL (7.4-10.4); Monocytes # 0.8 10^3/uL (0.2-0.9); Monocytes % 9.2 %; Neutrophils # 6.04 10^3/uL (1.8-7.7); Neutrophils % 71.9 %; Nucleated Red Blood Cells % 0 %; Platelet Count 247 10^3/cmm (157-399); Red Blood Count 4.09 10^6/uL (3.85-5.65); Red Cell Distribution Width 11.9 % (12.1-15.1)
--- NOTE | 2024-03-23 16:25 | ED_ITS ---
HPI - Extremity Problem 2 General: Chief complaint: Extremity Problem,Nontraumatic Stated complaint: left leg swollen and feverish, pain Time Seen by Provider: 03/23/24 15:34 Source: patient and family Mode of arrival: ambulatory Limitations: no limitations History of Present Illness: Patient is a nice 73-year-old female presents to ED today with a complaint of swelling and pain to her left lower extremity. Patient states she began having symptoms last week sometime. She was subsequently seen at [facility] and had an ultrasound of the extremity performed on 03/15 which was unremarkable. She was treated for a possible cellulitis. She feels like symptoms have not improved and pain has worsened thus prompting her emergency evaluation today. Patient states she has not had any recent surgeries. No periods of prolonged inactivity. Denies hormonal medications. She does states she had COVID 3 weeks ago. Patient does not complain of any chest pain, shortness of breath, or difficulty breathing. She arrives in no acute distress with stable vital signs. MD Complaint: extremity pain and extremity swelling Onset (ago): day(s) Pain Consistency: constant Location: left and lower extremity Radiation: none Relieving factors: immobilization Exacerbating factors: weight bearing, walking and palpation Associated symptoms: Reports no associated symptoms; Deny chest pain or fever(s) Related Data Home Medications Medication Instructions Recorded Confirmed guselkumab 100 mg/mL subcutaneous 100 mg SUBCUT .EVERY 8 WEEKS 03/29/21 03/08/23 syringe (Tremfya) Previous Rx's Medication Instructions Recorded buspirone 5 mg tablet 5 mg PO BID 90 days #180 tabs 10/28/22 nitroglycerin 0.4 mg sublingual 0.4 mg sublingual Q5M PRN chest 10/28/22 tablet (Nitrostat) pain #30 tabs rosuvastatin 40 mg tablet (Crestor) 40 mg PO DAILY #90 tabs 10/28/22 doxycycline hyclate 100 mg tablet 100 mg PO BID #20 tabs 03/11/23 levocetirizine 5 mg tablet (Xyzal) 5 mg PO BEDTIME 90 days #90 tabs 03/11/23 prednisone 20 mg tablet 40 mg (2 x 20 mg) PO DAILY 5 days 03/11/23 #10 tabs clopidogrel 75 mg tablet See Rx Instructions .Route 05/20/23 .COMPLEX #90 tabs metoprolol succinate 25 mg 12.5 mg (1/2 x 25 mg) PO BID #60 05/24/23 tablet,extended release 24 hr tabs apixaban 5 mg tablet (Eliquis) 5 mg PO BID #74 tabs 03/23/24 Allergies Allergy/AdvReac Type Severity Reaction Status Date / Time atorvastatin [From Lipitor] Allergy ADR-Gastrointestinal Verified 03/23/24 14:43 Upset codeine Allergy ALGY-Anaphy Verified 03/08/23 14:01 laxis Review of Systems 2 Const: Denies: fever(s) Card: Denies: chest pain, irregular heart rhythm, lightheadedness, syncope or pre-syncope Resp: Denies: dyspnea, pain on inspiration or hemoptysis Musc: Reports: extremity pain and extremity swelling; Denies: joint pain or joint swelling Neuro: Denies: numbness in extremities, weakness in extremities or sensory changes PFSH ED 2 PFSH: Medical History Coronary artery disease Essential hypertension Surgical History S/P right coronary artery (RCA) stent placement History of hip surgery Social History Smoking and tobacco/nicotine status: never used tobacco/nicotine Physical Exam 2 Const: COMMON NORMALS: no acute distress, average body habitus, patient oriented x3, no limitations, healthy appearing, alert and well nourished Resp: COMMON NORMALS: normal respiratory effort Cardio: COMMON NORMALS: regular rate RATE: regular rate Extremity: COMMON NORMALS: full ROM, capillary refill normal and no joint enlargement GENERAL: Yes normal exam except as noted LEFT LOWER EXTREMITY: Yes lower leg (edema and swelling to calf/popliteal region) Left lower leg: Yes neurovascular exam (normal) Neuro: COMMON NORMALS: patient oriented x3, moves all extremities, no focal motor deficits, no sensory deficits noted and gait normal S ENSORIUM/ORIENTATION: Yes alert Course 2 Vital Signs: Vital signs: Vital Signs Temperature 98.4 F 03/23/24 14:36 Pulse Rate 78 03/23/24 14:36 Respiratory Rate 18 03/23/24 14:36 Blood Pressure 138/86 03/23/24 14:36 Pulse Oximetry 95 03/23/24 14:36 Oxygen Delivery Me thod Room Air 03/23/24 14:36 MDM - Extremity (Nontraumatic) Medical Decision Making US venous of her lower extremity today showing DVT to peroneal and popliteal veins. Patient will be placed on Eliquis. She is not having any chest pain, shortness of breath, difficulty breathing. Vital signs are stable. Recommend follow-up with primary care next week for re-evaluation. Is likely inciting factor was her recent COVID infection. Return to ED precautions given. Medical Records I reviewed the patient's medical records. Lab Data I reviewed the patient's lab results. 03/23/24 15:30 Laboratory Results WBC 8.40 10^3/uL (3.29-11.43) 03/23/24 15:30 RBC 4.09 10^6/uL (3.85-5.65) 03/23/24 15:30 Hgb 12.30 g/dL (11.27-16.99) 03/23/24 15:30 Hct 39.1 % (36-47) 03/23/24 15:30 MCV 95.6 fl (85-98) 03/23/24 15:30 MCH 30.1 pg (27-33) 03/23/24 15:30 MCHC 31.5 g/dL (30-55) 03/23/24 15:30 RDW 11.9 % (12.1-15.1) L 03/23/24 15:30 Plt Count 247 10^3/cmm (157-399) 03/23/24 15:30 MPV 8.5 fL (7.4-10.4) 03/23/24 15:30 Neut % (Auto) 71.9 % 03/23/24 15:30 Lymph % (Auto) 15.0 % 03/23/24 15:30 [place] % (Auto) 9.2 % 03/23/24 15:30 Eos % (Auto) 3.2 % 03/23/24 15:30 Baso % (Auto) 0.5 % 03/23/24 15:30 Neut # (Auto) 6.04 10^3/uL (1.8-7.7) 03/23/24 15:30 Lymph # (Auto) 1.3 10^3/uL (0.8-4.8) 03/23/24 15:30 [place] # (Auto) 0.8 10^3/uL (0.2-0.9) 03/23/24 15:30 Eos # (Auto) 0.3 10^3/uL (0.0-0.8) 03/23/24 15:30 Baso # (Auto) 0.0 10^3/uL (0.0-0.1) 03/23/24 15:30 Nucleated RBC % (auto) 0 % 03/23/24 15:30 Nucleated RBCs # 0.0 /100WBC 03/23/24 15:30 All radiology interpretation(s) finalized by discharge Discharge Plan Discharge Patient Disposition: Home Clinical Impression: Left leg DVT Condition: Stable Prescriptions: New Eliquis 5 mg tablet 5 mg PO BID Qty: 74 0RF Rx Instructions: Take two tabs (10mg) BID x 7 days then one tab (5mg) PO BID thereafter No Action buspirone 5 mg tablet 5 mg PO BID 90 Days Qty: 180 1RF rosuvastatin [Crestor] 40 mg tablet 40 mg PO DAILY Qty: 90 1RF nitroglycerin [Nitrostat] 0.4 mg tablet, sublingual 0.4 mg sublingual Q5M PRN (Reason: chest pain) Qty: 30 1RF Rx Instructions: do not exceed 3 doses per episode levocetirizine [Xyzal] 5 mg tablet 5 mg PO BEDTIME 90 Days Qty: 90 1RF prednisone 20 mg tablet 40 mg PO DAILY 5 Days Qty: 10 0RF doxycycline hyclate 100 mg tablet 100 mg PO BID Qty: 20 0RF clopidogrel 75 mg tablet See Rx Instructions .ROUTE .COMPLEX Qty: 90 0RF Dose Instruction: TAKE 1 TABLET BY MOUTH EVERY DAY Rx Instructions: TAKE 1 TABLET BY MOUTH EVERY DAY metoprolol succinate 25 mg tablet extended release 24 hr 12.5 mg PO BID Qty: 60 0RF Tremfya 100 mg/mL syringe 100 mg SUBCUT .EVERY 8 WEEKS Discharge Orders: Discharge ED (Routine); Ordered 03/23/24 Ordered By: Coleen Hood Referrals: Barbra Rizzo PA [Primary Care Provider] - Patient Instructions: Apixaban (By mouth) (Eliquis), Deep Vein Thrombosis (DC) Activity Restrictions/Additional Instructions: We discussed, your left lower extremity showed a DVT to your popliteal and peroneal veins. I will place you on Eliquis. Please pick this up at the pharmacy immediately after discharge and start immediately. You need to return to the emergency department for onset of chest pain, shortness of breath, difficulty breathing, worsening leg pain, or any other concerns you may have. Please follow-up with your primary care provider next week for re-evaluation. It was a pleasure to care for you in the emergency department today. Hope you begin to feel better soon. Coding Level of Care Code ED [employer]
[2024-03-23 18:01] VITALS: BP 130/79; PULSE 71; O2SAT 97
[2024-03-23 18:03] VITALS: BP 130/79; PULSE 77; O2SAT 97
--- NOTE | 2024-03-23 18:39 | PC.NURSE ---
PT PRESCRIPTION ORIGNALLY CALLED INTO [facility] BY THIS NURSE. MESSAGE WAS LEFT FOR [facility] TO FILL PRESCRIPTION. PT CALLED BACK UPSET THAT PRESCRIPTION IS NOT AVAILABLE TO BE PICKED UP. [facility] WAS CALLED TO FILL PRESCRIPTION FOR PT. MESSAGE LEFT BY THIS NURSE AT [facility] TO CANCEL ORIGINAL MESSAGE CALLING IN THE PRESCRIPTION FOR PT DUE TO IT BEING FILLED AT [facility] INSTEAD. PT NOTIFIED.
== END 2024-03-23 18:04 | disposition home or self-care (01) ==
PROVIDERS: Emergency Medicine; Emergency Provider Physician Assistant; PCP Physician Assistant
DX: I82.452 Acute embolism and thrombosis of left peroneal vein (principal); I82.432 Acute embolism and thrombosis of left popliteal vein; Z86.16 Personal history of COVID-19
CPT/HCPCS: 36415; 85025; 93971; 99284

== ENCOUNTER → 2024-06-20 14:08 | Outpatient (BNVA) | payer MEDICARE, OTHER, SELFPAY | PROVIDERS: PCP Physician Assistant; Visit Provider Internal Medicine Cardiovascular Disease | DX: I25.10 Atherosclerotic heart disease of native coronary artery without angina pectoris (principal); I10 Essential (primary) hypertension; Z95.5 Presence of coronary angioplasty implant and graft; E78.5 Hyperlipidemia, unspecified; U09.9 Post COVID-19 condition, unspecified; Z86.718 Personal history of other venous thrombosis and embolism; Z87.891 Personal history of nicotine dependence | CPT/HCPCS: 99214 ==

== ENCOUNTER 2024-08-07 12:40 | Oncology outpatient (recurring) (ONCR) | payer MEDICARE, OTHER, SELFPAY ==
[2024-08-07 15:01] LABS: Basophils # 0.1 10^3/uL (0.0-0.1); Basophils % 0.7 %; Eosinophils # 0.2 10^3/uL (0.0-0.8); Eosinophils % 3.1 %; Hematocrit 38.9 % (36-47); Lymphocytes # 1.1 10^3/uL (0.8-4.8); Lymphocytes % 15.3 %; Mean Corpuscular HGB Conc 31.1 g/dL (30-55); Mean Corpuscular Hemoglobin 29.2 pg (27-33); Mean Platelet Volume 9.1 fL (7.4-10.4); Monocytes # 0.5 10^3/uL (0.2-0.9); Monocytes % 7.4 %; Neutrophils # 5.03 10^3/uL (1.8-7.7); Neutrophils % 73.2 %; Nucleated Red Blood Cells % 0 %; Platelet Count 259 10^3/cmm (157-399); Red Blood Count 4.14 10^6/uL (3.85-5.65); Red Cell Distribution Width 12.4 % (12.1-15.1); White Blood Count 6.87 10^3/uL (3.29-11.43)
[2024-08-09 01:19] LABS: CARDIOLIPIN AB (IGA) <2.0 APL-U/mL; CARDIOLIPIN AB (IGG) <2.0 GPL-U/mL; CARDIOLIPIN AB (IGM) <2.0 MPL-U/mL
[2024-08-09 22:50] LABS: Lupus DRVVT 1:1 Mix NOT CORRECTED (CORRECTED); Lupus DRVVT Confirm POSITIVE (NEGATIVE); Lupus Hexagonal Phas Confirm POSITIVE (NEGATIVE); Lupus Thrombin Clotting Time 18 sec (13-19); PTT-LA-Screen 112 sec (< OR = 40)
[2024-08-10 10:38] LABS: Protein S Antigen, Total 103 % normal (70-140)
[2024-08-10 17:20] LABS: Factor 5 Leiden Mutation POSITIVE
[2024-08-10 22:00] LABS: Beta 2 Glycoprotein IGA <2.0 U/mL (<20.0); Beta 2 Glycoprotein IGG <2.0 U/mL (<20.0); Beta 2 Glycoprotein IGM <2.0 U/mL (<20.0)
[2024-08-10 22:14] LABS: PROTEIN C, ACTIVITY 122 % normal (70-180)
[2024-08-10 22:45] LABS: Antithrombin III Activity 105 % normal (80-135)
[2024-08-11 16:35] LABS: PROTHROMBIN (FACTOR II) 20210G NEGATIVE
== END 2024-08-27 23:59 | disposition home or self-care (01) ==
PROVIDERS: Absent Provider Internal Medicine Cardiovascular Disease; PCP Physician Assistant; Visit Provider Internal Medicine Medical Oncology
DX: I82.402 Acute embolism and thrombosis of unspecified deep veins of left lower extremity (principal); G11.9 Hereditary ataxia, unspecified; T14.8XXA Other injury of unspecified body region, initial encounter; I10 Essential (primary) hypertension; I25.10 Atherosclerotic heart disease of native coronary artery without angina pectoris; Z87.891 Personal history of nicotine dependence; Z86.16 Personal history of COVID-19; Z79.899 Other long term (current) drug therapy
CPT/HCPCS: 36415; 81241; 85025; 85210; 85300; 85303; 85305; 85613; 85730; 86146; 86147; 99205

== ENCOUNTER 2024-10-10 14:49 | Oncology outpatient (recurring) (ONCR) | payer MEDICARE, OTHER, SELFPAY ==
[2024-10-10 15:14] LABS: Basophils % 0.6 %; Eosinophils # 0.3 10^3/uL (0.0-0.8); Eosinophils % 4.4 %; Lymphocytes # 1.2 10^3/uL (0.8-4.8); Lymphocytes % 18.5 %; Mean Corpuscular HGB Conc 31.4 g/dL (30-55); Mean Corpuscular Hemoglobin 29.8 pg (27-33); Mean Platelet Volume 8.8 fL (7.4-10.4); Monocytes # 0.7 10^3/uL (0.2-0.9); Monocytes % 10.9 %; Neutrophils % 65.4 %; Nucleated Red Blood Cells % 0 %; Platelet Count 255 10^3/cmm (157-399); Red Blood Count 3.79 10^6/uL (3.85-5.65); Red Cell Distribution Width 12.7 % (12.1-15.1); White Blood Count 6.42 10^3/uL (3.29-11.43)
[2024-10-10 15:40] LABS: Alanine Aminotransferase 16 U/L (0-33); Albumin Level 3.8 g/dL (3.5-5.2); Alkaline Phosphatase 76 U/L (35-105); Anion Gap 14.7 (5-19); Aspartate Amino Transferase 20 U/L (0-32); Blood Urea Nitrogen 18 mg/dL (8-23); Calcium 9.7 mg/dL (8.5-10.5); Carbon Dioxide 25 mmol/L (22-29); Chloride 106 mmol/L (98-107); Creatinine Clr Calc Pharmacy 56.8748; Globulin 3.3 g/dL (1.3-4.6); Glucose 83 mg/dL (65-115); Osmolality Calculated 293 mOsm/kg (285-295); Potassium 4.7 mmol/L (3.5-5.1); Sodium 141 mmol/L (136-145); Total Bilirubin 0.7 mg/dL (0.15-1.2); Total Protein 7.1 g/dL (6.6-8.7)
== END 2024-10-27 23:59 | disposition home or self-care (01) ==
PROVIDERS: Absent Provider Internal Medicine Cardiovascular Disease; PCP Physician Assistant; Visit Provider Internal Medicine Medical Oncology
DX: I82.402 Acute embolism and thrombosis of unspecified deep veins of left lower extremity (principal)
CPT/HCPCS: 36415; 80053; 85025; 99214

== ENCOUNTER 2024-12-30 14:01 | Emergency (ER) | payer MEDICARE, OTHER, SELFPAY ==
--- NOTE | 2024-12-30 14:06 | ECG_ITS ---
[facility] [place] Test Date: 2024-12-30 Pat Name: Kathy Mead Department: Room: Gender: Female Inspector Automatic Typewriter: : 1950 Requested By: Pérez Anna Order Number: [id number] Reading MD: YOGESH CANTOR Measurements Intervals [place] Rate: 73 P: 36 MT: 160 QRS: 11 QRSD: 81 T: 22 QT: 359 QTc: 397 Interpretive Statements SINUS RHYTHM ANTERIOR MYOCARDIAL INFARCTION , PROBABLY OLD [40+ ms Q WAVE AND/OR ST/T ABNORMALITY IN V3/V4] Compared to ECG 03/28/2021 16:31:33 No significant changes Electronically Signed On 12-31-2024 13:56:31 CDT by YOGESH CANTOR [email or web address]
[2024-12-30 14:08] VITALS: BP 153/86; PULSE 76; TEMP 36.4; O2SAT 96; BMI 28.8
--- OUTSIDE RECORDS SUMMARY | 2024-12-30 14:08 | XMS_ITS | Clinical Summary ---
Author Organization [facility] Address [address] [place] [address] Care Team Providers Care Honey Blender Name Role Phone Aura Barclay MD, Terry Rachel Primary Care Provider Allergies Active Allergy Reactions Criticality Noted Date Comments Codeine Nausea and Vomiting Low 03/26/2013 Nickel Rash Low 12/16/2016 Medications labetalol (NORMODYNE) 300 mg tabletIndicatio ns:Post-menopau tiffany bleeding Take 300 mg by mouth 2 times daily. Active FAMOTIDINE (PEPCID ORAL)Indication s:Post-menopaus al bleeding Take by mouth. Active OTHER Plexus Slim . Active nystatin (NYSTOP) 100,000 unit/gram powder Apply to affected area 2 times daily. 60 Gram 1 10/12/2017 Active Active Problems Patient Care Coordination No te Formatting of this note migh t be different from the original. RECOVERING FROM YOUR VAGINAL SURGERY PAIN: You should experience only mild to moderate discomfort. This is easily controlled with Tylenol, Ibuprofen or the prescription pain medication you were provided. VAGINAL DISCHARGE: A bloody discharge is normal for 2-4 weeks. Wear sanitary pads only, no tampons. DO NOT DOUCHE. CONSTIPATION: You may experience constipation after your surgery. If this occurs, you may use Senokot or Dulcolax . Make sure your diet includes fruit, green leafy vegetables, whole grain foods and plenty of water. ACTIVITY 1st Week: Rest. Remember you are recovering from minor surgery. Take care of yourself only. Light housework is ok. You should not do any heavy lifting or straining. No driving yourself, until you are off pain medications. Walking is good. Stairs are ok, just go slowly. 2nd Week: Resume all normal activities. You can plan on returning to work with 2 days depending on your type of job and your healing. If you wish return to work before call the office and check in with the nurse. DIET: To help your body recover, eat a well-balanced diet high in proteins and drink plenty of water and fluids. [place] may be difficult at first, but may be resumed at 2 weeks. It is normal for you to experience unusually urinary symptoms such as frequency, urgency, and having your stream stop and start unexpectedly for the first few weeks. Once the inflammation from your surgery resolves and the stitches have resolved, most of the urinary symptoms will dissipate. CALL FOR MEDICAL ADVICE IF YOU HAVE 1. Excessive Bleeding 2. Fever above 100 degrees F 3. SEVERE Urinary Pain 4. Foul Smelling Discharge 5. Unusual, Severe Pain in Legs, Abdomen or Chest Beryl Dobbins MD [phone] Problem Noted Date Diagnosed Date Endometrial mass 10/07/2017 Post-menopausal bleeding 11/30/2016 Resolved Problems Problem Noted Date Diagnosed Date Resolved Date Endometrial polyp 11/30/2016 10/07/2017 Immunizations Immunization Administration Dates Next Due Influenza Seasonal Unspecified Formulation IM Family History Medical History Relation Name Comments Other Father Other Mother Relation Name Status Comments Father Mother Social History Tobacco Use Types Packs/Day Years Used Date Smoking Tobacco: Former Smokeless Tobacco: Never Alcohol Use Standard Drinks/Week Comments Yes 0 (1 standard drink = 0.6 oz pur e alcohol) socially Comments No Sex and Gender Information Value Date Recorded Sex Assigned at Not on file 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 Gender Identity Not on file Sexual Orientation Not on file Occupation Industry Job Start Date Job End Date Not on file Not on file Not on file Not on file Last Filed Vital Signs Vital Sign Reading Time Taken Comments Blood Pressure 100/70 10/12/2017 2:09 PM CDT Pulse 64 12/20/2016 10:51 AM CDT Temperature 36.3 C (97.3 F) 12/20/2016 9:38 AM CDT Respiratory Rate 16 12/20/2016 10:51 AM CDT Oxygen Saturation 98% 12/20/2016 10:51 AM CDT Inhaled Oxygen Concentration - - Weight 81.2 kg (179 lb) 10/12/2017 2:09 PM CDT Height 172.7 cm (5' 8 ) 10/12/2017 2:09 PM CDT Body Mass Index 27.22 10/12/2017 2:09 PM CDT Plan of Treatment Health Maintenance Due Date Last Done Comments DTAP/TDAP/TD VACCINES (1 - Tdap) 1969 BREAST CANCER SCREENING 1990 COLORECTAL SCREENING 1995 Colorectal Cancer Screening 1995 FIT-DNA Q 3 years 1995 FIT/FOBT Q 1 year 1995 Flex Sig/CT Colonography Q 5 years 1995 PNEUMOCOCCAL VACCINE 50+ YEARS (1 of 1 - PCV) 04/09/20 00 ZOSTER VACCINE (1 of 2) 2000 OSTEOPOROSIS SCREENING 2015 INFLUENZA VACCINE (#1) 2024 03/18/2016 RSV VACCINE (60+ or ) (1 - 1-dose 75+ series) 2025 Insurance [facility] PAY [place] [id number] MEDICARE PART A AND B Advance Directives For more information, please contact: [phone] * Full Code (Latest Code Status on File) Date Activated Date Inactivated Comments 12/20/2016 10:13 AM 12/20/2016 1:22 PM Care Teams Honey Blender Relationship Specialty Start Date End Date Terry Chavarria Jr., MD [address] [address] PCP - General Family Practice 10/28/11
--- OUTSIDE RECORDS SUMMARY | 2024-12-30 14:08 | XMS_ITS | Encounter Summary ---
Author Organization [facility] Address [address] [place] [address] Care Team Providers Care Delivery And Installation Subcontractor Name Role Phone Aura Barclay MD, Terry Rachel Primary Care Provider Encounter Details Date Type Department Care Team (Latest Contact Info) Description 11/11/1997 Outpatient Historical [facility] Isidoro Banks Jr., MD [address] [place] [address] Unspecified reason for consultation (Primary Dx) Social History Tobacco Use Types Packs/Day Years Used Date Smoking Tobacco: Never Assessed Comments Unknown Sex and Gender Information Value Date Recorded Sex Assigned at Not on file Legal Sex Female 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
--- OUTSIDE RECORDS SUMMARY | 2024-12-30 14:08 | XMS_ITS | Encounter Summary ---
Author Organization [facility] Address [address] [place] [address] Care Team Providers Care Assistant Head Cashier Name Role Phone Aura Barclay MD, Terry Rachel Primary Care Provider Encounter Details Date Type Department Care Team (Latest Contact Info) Description 10/28/2011 Ancillary Orders [facility] Cardiac Thoracic Vascular Surg [place] [address] [place] [address] Rikki Lyons MD [address] [place] [address] Asymptomatic varicose veins Social History Tobacco Use Types Packs/Day Years Used Date Smoking Tobacco: Never Assessed Comments Unknown Sex and Gender Information Value Date Recorded Sex Assigned at Not on file Legal Sex Female 4:13 AM DIRECTOR [employer] Gender Identity Not on file Sexual Orientation Not on file documented as of this encounter Plan of Treatment Not on file documented as of this encounter Visit Diagnoses Diagnosis Asymptomatic varicose veins documented in this encounter Care Teams Assistant Head Cashier Relationship Specialty Start Date End Date Terry Chavarria Jr., MD [address] [phone] PCP - General Family Practice 10/28/11 documented as of this encounter
--- OUTSIDE RECORDS SUMMARY | 2024-12-30 14:08 | XMS_ITS | Encounter Summary ---
Author Organization [facility] Address [address] [place] [address] Care Team Providers Care Deep Fryer Assembler Name Role Phone Aura Barclay MD, Terry Rachel Primary Care Provider Encounter Details Date Type Department Care Team (Latest Contact Info) Description 05/12/1999 Outpatient Historical [facility] Cardiology- Marc [address] [place] [address] Servando Gomes MD [address] [place] [address] [address] [place] [address] Coronary atherosclerosis of s[place] coronary artery (Primary Dx); Pure hypercholesterolem Social History Tobacco Use Types Packs/Day Years Used Date Smoking Tobacco: Never Assessed Comments Unknown Sex and Gender Information Value Date Recorded Sex Assigned at Not on file 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
--- OUTSIDE RECORDS SUMMARY | 2024-12-30 14:08 | XMS_ITS | Encounter Summary ---
Author Organization [facility] Address [address] [facility] Attn: Epic Prelude ADT [place] [address] Care Team Providers Care Appeals Referee Name Role Phone Aura Barclay MD, Terry Rachel Primary Care Provider Encounter Details Date Type Department Care Team (Late st Contact Info) Description 09/30/2000 Inpatient Historical Servando Gomes MD [address] [place] [address] [address] [place] [address] Social History Tobacco Use Types Packs/Day Years Used Date Smoking Tobacco: Never Assessed Comments Unknown Sex and Gender Information Value Date Recorded Sex Assigned at Not on file Legal Sex Female 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
--- OUTSIDE RECORDS SUMMARY | 2024-12-30 14:08 | XMS_ITS | Encounter Summary ---
Author Organization [facility] Address [address] [place] [address] Care Team Providers Care Food Assembler Kitchen Name Role Phone Aura Barclay MD, Terry Rachel Primary Care Provider Encounter Details Date Type Department Care Team ([facility] Contact Info) Description 12/06/2000 Outpatient Historical [facility] Dermatology- [address] [place] [address] Bruce Loera MD [address] [place] [address] Other psoriasis (Primary Dx) Social History Tobacco Use Types Packs/Day Years Used Date Smoking Tobacco: Never Assessed Comments Unknown Sex and Gender Information Value Date Recorded Sex Assigned at Not on file Legal Sex Female 4:13 AM SKIP LOCATOR Gender Identity Not on file Sexual Orientation Not on file documented as of this encounter Plan of Treatment Not on file documented as of this encounter Visit Diagnoses Diagnosis Other psoriasis- Primary documented in this encounter Care Teams Food Assembler Kitchen Relationship Specialty Start Date End Date Terry Chavarria Jr., MD [address] [phone] PCP - General Family Practice 10/28/11 documented as of this encounter
--- OUTSIDE RECORDS SUMMARY | 2024-12-30 14:08 | XMS_ITS | Clinical Summary ---
Author Organization [facility] Address [address] [facility] Attn: Epic Prelude ADT [place] [address] Care Team Providers Care Oil Developer Name Role Phone Meet Rizzo MD Primary Care Provider [phone] Allergies Active Allergy Reactions Criticality Noted Date Comments Codeine Nausea and Vomiting Low 03/26/2013 Nickel Rash Low 12/16/2016 Medications oxyCODONE-aceta minophen (Percocet) 5-325 mg tabletIndicatio ns:Closed fracture of right hip with delayed healing, subsequent encounter Take 1 Tablet by mouth every 4 hours as needed for Pain, Moderate. Max Daily Amount: 6 Tablets 40 Tablet 03/20/2021 8:21 AM CDT 03/17/2021 Active rosuvastatin (CRESTOR) 40 mg tablet 03/31/2021 Active metoprolol succinate (TOPROL XL) 25 mg Extended Release 24 hour tablet 03/30/2021 Active Tremfya 100 mg/mL Syringe 04/28/2021 Activ e clopidogreL (PLAVIX) 75 mg Tablet 03/30/2021 Active atorvastatin (LIPITOR) 40 mg tablet 03/30/2021 Active nystatin (NYSTOP) 100,000 unit/gram powder Apply to affected area 2 times daily. 60 Gram 1 10/12/2017 Active OTHER Plexus Slim . 12/16/2016 Activ e Active Problems Patient Care Coordination No te [...] and drink plenty of water and fluids. 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 04/29/2021 Endometrial mass 10/07/2017 Post-menopausal bleeding 11/30/2016 Closed fracture of right hip Resolved Problems Problem Noted Date Diagnosed Date [...] drink = 0.6 oz pur e alcohol) Comments Unknown Sex and Gender Information Value Date Recorded Sex Assigned at Not on file Legal Sex Female 4:26 PM CONSTRUCTION DIRECTOR Gender Identity Not on file Sexual Orientation Not on file Last Filed Vital Signs Vital Sign Reading Time Taken Comments Blood Pressure 130/72 04/29/2021 1:02 PM CONSTRUCTION DIRECTOR Pulse 85 03/19/2021 7:00 AM CDT Temperature 36.6 C (97.9 F) 03/19/2021 7:00 AM CDT Respiratory Rate 18 03/19/2021 7:00 AM CDT Oxygen Saturation 95% 03/19/2021 7:00 AM CDT Inhaled Oxygen Concentration - - Weight 80.7 kg (178 lb) 04/29/2021 1:02 PM CONSTRUCTION DIRECTOR Height 172.7 cm (5' 8 ) 04/29/2021 1:02 PM CONSTRUCTION DIRECTOR Body Mass Index 27.06 04/29/2021 1:02 PM CONSTRUCTION DIRECTOR Plan of Treatment Health Maintenance Due Date Last Done Comments DTAP/TDAP/TD VACCINES (1 - Tdap) 1969 BREAST CANCER SCREENING 1990 COLORECTAL SCREENING 1995 Colorectal Cancer Screening 1995 FIT-DNA Q 3 years 1995 FIT/FOBT Q 1 year 1995 Flex Sig/CT Colonography Q 5 years 1995 PNEUMOCOCCAL VACCINE 50+ YEARS (1 of 1 - PCV) 04/09/20 ZOSTER VACCINE (1 of 2) 2000 OSTEOPOROSIS SCREENING 2015 INFLUENZA VACCINE (#1) 2024 03/18/2016 RSV VACCINE (60+ or ) (1 - 1-dose 75+ series) 2025 Medical Devices Implanted Type Area Professional Fighter Device Identifier Shelf Expiration Date Model / Serial / Lot Cement R Refobacin 1x40gm [id number] - [id number] Implanted:Qty: 1 on 03/17/2021 by Juancarlos Garcia DO at [facility] Cement Right: Hip [employer] [id number] 03/29/2023 [id number] / / [id number] Stem Fem Accld Ii 127d [facility] 4111-6437 - [id number] Implanted:Qty: 1 on 03/17/2021 by Juancarlos Garcia DO at [facility] Hip Right: Hip [employer] [id number] 08/20/2024 4244-3765 / / [id number] Shell Acet Trident Ii E 52mm 702-04-52e - [id number] Implanted:Qty: 1 on 03/17/2021 by Juancarlos Garcia DO at [facility] Hip Right: Hip [employer] 10/14/2025 702-04-52E / / [id number] Head Fem V40 Biolox Delta 6570-0-136 - [id number] Implanted:Qty: 1 on 03/17/2021 by Juancarlos Garcia DO at [facility] Hip Right: Hip [employer] 6570-0-136 / / [id number] Screw Trident 2 6.5x30mm [id number] - [id number] Implanted:Qty: 1 on 03/17/2021 by Juancalros Garcia DO at [facility] Screw Right: Hip [employer] 10/01/2025 3081-3545 / / [id number] Polyethylene Insert Implanted:Qty: 1 on 03/17/2021 by Juancarlos Garcia DO at [facility] Right: Hip [employer] 723-10-36E / / [id number] Insurance MEDICARE PART A AND B [facility] Member Subscriber Plan / Payer (Ef fective 2020-Present) Name:Kathy Mead Relation to Subscriber:Self Name:Kathy Mead Payer ID:Not on file Group ID:Not on file Type:[place] Address: [address] [address] [facility] [facility] Medicare Part D Advance Directives For more information, please contact: [phone] * Full Code (Latest Code Status on File) Date Activated Date Inactivated Comments 03/17/2021 4:13 PM 03/19/2021 6:23 PM * Full Code Date Activated Date Inactivated Comments 03/17/2021 4:28 AM 03/17/2021 4:13 PM Care Teams Oil Developer Relationship Specialty Start Date End Date Meet Rizzo MD [address] [facility] [address] [place] [address] PCP - General Family Practice 03/17/21
--- NOTE | 2024-12-30 14:21 | XRR_ITS ---
PROCEDURE INFORMATION: Exam: XR Left Shoulder Exam date and time: 12/30/2024 2:30 PM Age: 74 years old Clinical indication: Pain; Shoulder; Left; Additional info: Shoulder pain TECHNIQUE: Imaging protocol: Radiologic exam of the left shoulder. Views: 2 or more views. COMPARISON: No relevant prior studies available. FINDINGS: Bones/joints: Normal. Soft tissues: Normal. XR/XR shoulder LT min 2V* [id number] IMPRESSION: No acute findings.
--- NOTE | 2024-12-30 15:26 | USR_ITS ---
PROCEDURE INFORMATION: Exam: US Duplex Left Upper Extremity Veins, Limited Exam date and time: 12/30/2024 4:53 PM Age: 74 years old Clinical indication: Pain; Arm, upper; Left; Additional info: Severe atraumatic arm pain, HX of clots TECHNIQUE: Imaging protocol: Real-time duplex ultrasound of the left extremity with 2-D ho scale, color Doppler flow and spectral waveform analysis including responses to compression and other maneuvers (when performed) with image documentation. Limited exam focused on the left upper extremity veins. COMPARISON: CR (CHEST, ) 12/30/2024 2:30 PM FINDINGS: Left deep veins: Unremarkable. Axillary and brachial veins are patent throughout without thrombus. Normal Doppler waveforms. Normal compressibility and/or augmentation response. Visualized internal jugular and subclavian veins are patent. Superficial veins: Unremarkable. Visualized cephalic and basilic veins are patent without thrombus. Soft tissues: Unremarkable. US/[place] [id number] IMPRESSION: No evidence of deep vein thrombosis.
[2024-12-30 15:34] VITALS: RESP 18; O2SAT 96
--- NOTE | 2024-12-30 15:42 | ED_ITS ---
HPI - Extremity Problem General: Chief complaint: Extremity Injury, Upper Stated complaint: L arm And shoulder painful Time Seen by Provider: 12/30/24 14:45 Source: patient Mode of arrival: ambulatory Limitations: no limitations History of Present Illness: Patient is a 74-year-old female who presents the emergency department complaining of left upper arm pain for the past few weeks. She reports a ca rdiac history is that she is concerned of a blood clot, however she is on Eliquis and Plavix. Denies any trauma, states that she has pain with overhead movement and also with palpation of the area. No distal neurovascular symptoms reported. No history of shoulder surgery. No chest pain or shortness of breath. MD Complaint: extremity pain and joint pain Onset (ago): week(s) (2) Pain Consistency: constant Location: left and upper extremity Radiation: distal Associated symptoms: Deny chest pain, fever(s) or rash Related Data Home Medications ?Medication ?Instructions ?Recorded ?Confirmed guselkumab 100 mg/mL subcutaneous 100 mg SUBCUT .EVERY 8 WEEKS 03/29/21 10/10/24 syringe (Tremfya) famotidine 40 mg tablet 40 mg PO DAILY 08/07/2409/27 multivitamin 1 tab PO DAILY 08/07/2409/27 Previous Rx's ?Medication ?Instructions ?Recorded buspirone 5 mg tablet 5 mg PO BID 90 days #180 tab s 10/28/22 nitroglycerin 0.4 mg sublingual 0.4 mg sublingual Q5M PRN chest 10/28/22 tablet (Nitrostat) pain #30 tabs rosuvastatin 40 mg tablet (Crestor) 40 mg PO DAILY #90 tabs 10/28/22 clopidogrel 75 mg tablet See Rx Instructions .Route 1 07/21/22 .COMPLEX #90 tabs metoprolol succinate 25 mg 12.5 mg (1/2 x 25 mg) PO BI D #60 05/24/23 tablet,extended release 24 hr tabs apixaban 5 mg tablet (Eliquis) 5 mg PO BID #74 tabs lidocaine 4 % topical patch 1 patch topical DAILY PRN pain #5 12/30/24 (Aspercreme (lidocaine)) ea prednisone 20 mg tablet 60 mg (3 x 20 mg) PO ONCE 5 days 12/30/24 #15 tabs Allergies Allergy/AdvReac Type Severity Reaction Status Date / Time atorvastatin (From Lipitor) Allergy ADR-Gastrointestinal Verified 12/30/24 14:17 Upset codeine Allergy ALGY-Anaphy Verified 12/30/24 14:17 laxis Review of Systems General: Reports: 10 or more systems reviewed and unremarkable except in HPI and below Const: Denies: fever(s) or chills Card: Denies: chest pain Resp: Denies: dyspnea or productive cough GI: Denies: abdominal pain, nausea, vomiting or diarrhea : Denies: flank pain Musc: Reports: extremity pain, joint pain and limited range of motion; Denies: neck pain, back pain, extremity swelling, joint swelling, joint redness, joint warmth or muscle weakness Skin/Breast: Denies: rash Neuro: Denies: headache(s), numbness in extremities or weakness in extremities PFS ED PFSH: Medical History Coronary artery disease Essential hypertension Surgical History S/P right coronary artery (RCA) stent placement History of hip surgery Social History Smoking and tobacco/nicotine status: former use of tobacco/nicotine Physical Exam Const: COMMON NORMALS: no acute distress, patient oriented x3, no limitations, healthy appearing, alert and well nourished HENMT: COMMON NORMALS: normocephalic and atraumatic HEAD & SCALP: normocephalic and atraumatic Neck/C-Spine: COMMON NORMALS: full ROM, supple and no meningeal signs Resp: COMMON NORMALS: normal respiratory effort, No use of accessory muscles and clear to auscultation bilaterally AUSCULTATION: clear to auscultation bi laterally Cardio: COMMON NORMALS: regular rate and regular rhythm RATE: regular rate RHYTHM: regular rhythm Extremity: COMMON NORMALS: normal to inspection, capillary refill normal, no joint enlargement and no clubbing, cyanosis or edema NARRATIVE EXTREMITY EXAM: Tender to palpation to left anterior shoulder joint, limited range of motion in all love. Distal neurovascular exam is intact. She has normal testing of the median, ulnar, and radial nerve distally. Radial pulse present. Pain with range of motion at the elbow as well. No signs of trauma or deformity. Neuro: COMMON NORMALS: patient oriented x3, moves all extremities, no focal motor deficits and no sensory deficits noted SENSORIUM/ORIENTATION: Yes alert MENINGEAL SIGNS: Yes no meningeal signs Skin: COMMON NORMALS: no rashes or lesions noted GENERAL SKIN EXAM: no rashes or lesions noted Course Vital Signs: Vital signs: Vital Signs Temperature 97.5 F L 12/30/24 14:08 Pulse Rate 76 12/30/24 17:31 Respiratory Rate 18 12/30/24 15:34 Blood Pressure 162/71 12/30/24 17:31 Pulse Oximetry 99 12/30/24 17:31 Oxygen Delivery Me thod Room Air 12/30/24 15:34 MDM - Extremity (Nontraumatic) Medical Decision Making Patient presented with a couple weeks of left upper extremity pain. Negative for blood clot here in the emergency department, she is on 2 blood thinners. EKG reviewed physician was unremarkable. X-ray negative. She reports relief of pain after shot of Decadron as well as dose of tramadol. With her weakness and limited range of motion, could be rotator cuff pathology and thus we will refer her to orthopedics for possible MRI. Sling provided for comfort. Discharge home at this time. Lab Data Radiology Impressions Shoulder X-Ray 12/30/24 14:21 IMPRESSION: No acute findings. Venous Duplex 12/30/24 15:26 IMPRESSION: No evidence of deep vein thrombosis. All radiology interpretation(s) finalized by discharge Discharge Plan Discharge Patient Disposition: Home Clinical Impression: Left shoulder strain Condition: Stable Prescriptions: New lidocaine [Aspercreme (lidocaine)] 4 % adhesive patch,medicated 1 patch topical DAILY PRN (Reason: pain) Qty: 5 0RF prednisone 20 mg tablet 60 mg PO ONCE 5 Days Qty: 15 0RF No Action multivitamin Tablet 1 tab PO DAILY famotidine 40 mg tablet 40 mg PO DAILY buspirone 5 mg tablet 5 mg PO BID 90 Days Qty: 180 1RF rosuvastatin [Crestor] 40 mg tablet 40 mg PO DAILY Qty: 90 1RF nitroglycerin [Nitrostat] 0.4 mg tablet, sublingual 0.4 mg sublingual Q5M PRN (Reason: chest pain) Qty: 30 1RF Rx Instructions: do not exceed 3 doses per episode clopidogrel 75 mg tablet See Rx Instructions .ROUTE .COMPLEX Qty: 90 0RF Dose Instruction: TAKE 1 TABLET BY MOUTH EVERY DAY Rx Instructions: TAKE 1 TABLET BY MOUTH EVERY DAY metoprolol succinate 25 mg tablet extended release 24 hr 12.5 mg PO BID Qty: 60 0RF Tremfya 100 mg/mL syringe 100 mg SUBCUT .EVERY 8 WEEKS Eliquis 5 mg tablet 5 mg PO BID Qty: 74 0RF Rx Instructions: Take two tabs (10mg) BID x 7 days then one tab (5mg) PO BID thereafter Discharge Orders: Discharge ED (Routine); Ordered 12/30/24 Ordered By: Isidoro Arias Referrals: Barbra Rizzo PA [Primary Care Provider, Physicians Test Consultant] Patient Instructions: Pain Management, Patient Portal & Beatriz Instructions Activity Restrictions/Additional Instructions: Shoulder Pain Discharge Diagnosis and Next Steps: You have been evaluated for left upper arm pain. Imaging (ultrasound and x-ray) did not show a blood clot or fracture. The most likely cause is a shoulder strain or rotator cuff problem, which is common in older adults and often responds well to non-surgical treatment. You have been referred to an cardiac exercise specialist for further evaluation. Home Care Instructions: - Activity Modification: - Avoid activities that worsen your pain, especially overhead lifting or repetitive shoulder movements. - Use your arm for light daily activities as tolerated, but do not immobilize it completely. - Pain Management: - Use ice packs on the shoulder for 15?20 minutes, 3?4 times daily, especially after activity, to reduce pain and swelling. - Consider acetaminophen or a nonsteroidal anti-inflammatory drug (NSAID) such as ibuprofen or naproxen, if not contraindicated by other medical conditions. Follow package instructions for dosing. - Topical NSAIDs (such as diclofenac gel) may also be considered for localized pain relief. - Physical Therapy and Exercises: - Begin gentle [id number] exercises as tolerated, such as pendulum swings and wall climbing with the fingers, to prevent stiffness. - Avoid strengthening exercises until cleared by your cardiac exercise specialist or physical therapist. - A formal physical therapy program will likely be recommended, as this is effective for most patients with rotator cuff or shoulder strain. - Sling Use: - A sling may be used for short periods for comfort, but prolonged immobilization should be avoided to prevent stiffness. Return Precautions: Seek prompt medical attention if you experience any of the following: - Sudden increase in pain or swelling - New numbness, tingling, or weakness in the arm or hand - Inability to move the arm at all - Signs of infection (fever, redness, warmth at the shoulder) - Chest pain or shortness of breath Follow-Up: - Attend your scheduled orthopedic appointment for further evaluation and management. - If your pain or function does not improve after 6?12 weeks of conservative treatment, further imaging or intervention may be considered. Additional Notes: - Most patients with shoulder strain or rotator cuff pathology improve with nonoperative management, including physical therapy and pain control. - Surgery is rarely needed unless there is a complete tear, persistent pain, or significant loss of function despite conservative treatment. Print Language: Bangladeshi Coding Level of Care Code ED [employer]
[2024-12-30 17:31] VITALS: BP 162/71; PULSE 76; O2SAT 99
--- NOTE | 2024-12-31 09:45 | DCPLANNER ---
messaged ortho for er f/u
== END 2024-12-30 17:32 | disposition home or self-care (01) ==
PROVIDERS: Emergency Provider Physician Assistant; PCP Physician Assistant
DX: S46.912A Strain of unspecified muscle, fascia and tendon at shoulder and upper arm level, left arm, initial encounter (principal); Z79.02 Long term (current) use of antithrombotics/antiplatelets; Z79.01 Long term (current) use of anticoagulants; Z87.891 Personal history of nicotine dependence; I25.10 Atherosclerotic heart disease of native coronary artery without angina pectoris; I10 Essential (primary) hypertension; X58.XXXA Exposure to other specified factors, initial encounter
CPT/HCPCS: 73030; 93005; 93971; 96372; 99284; A4565; J1100; J9999

== ENCOUNTER → 2025-01-08 15:09 | Outpatient (BNVA) | payer MEDICARE, OTHER, SELFPAY | PROVIDERS: PCP Physician Assistant; Visit Provider Orthopaedic Surgery | DX: M19.012 Primary osteoarthritis, left shoulder (principal) | CPT/HCPCS: 73030; 99203 ==

== ENCOUNTER → 2025-01-09 12:48 | Outpatient (BNVA) | payer MEDICARE, OTHER, SELFPAY | PROVIDERS: PCP Physician Assistant; Visit Provider Internal Medicine Cardiovascular Disease | DX: I25.10 Atherosclerotic heart disease of native coronary artery without angina pectoris (principal); I10 Essential (primary) hypertension; I82.409 Acute embolism and thrombosis of unspecified deep veins of unspecified lower extremity; Z76.89 Persons encountering health services in other specified circumstances; Z79.01 Long term (current) use of anticoagulants; Z95.5 Presence of coronary angioplasty implant and graft; Z87.891 Personal history of nicotine dependence | CPT/HCPCS: 99214 ==

== ENCOUNTER 2025-04-16 14:21 | Oncology outpatient (recurring) (ONCR) | payer MEDICARE, OTHER, SELFPAY ==
[2025-04-16 14:38] LABS: Hematocrit 28.0 % (36-47); Hemoglobin 8.10 g/dL (11.27-16.99); Mean Corpuscular HGB Conc 28.9 g/dL (30-55); Mean Corpuscular Hemoglobin 25.3 pg (27-33); Mean Corpuscular Volume 87.5 fl (85-98); Nucleated Red Blood Cells % 0 %; Platelet Count 270 10^3/cmm (157-399); Red Blood Count 3.20 10^6/uL (3.85-5.65); White Blood Count 7.32 10^3/uL (3.29-11.43)
[2025-04-16 14:57] LABS: Alanine Aminotransferase 20 U/L (0-33); Albumin Level 4.0 g/dL (3.5-5.2); Alkaline Phosphatase 76 U/L (35-105); Anion Gap 15.7 (5-19); Aspartate Amino Transferase 24 U/L (0-32); Blood Urea Nitrogen 22 mg/dL (8-23); Calcium 9.3 mg/dL (8.5-10.5); Carbon Dioxide 23 mmol/L (22-29); Chloride 107 mmol/L (98-107); Globulin 2.9 g/dL (1.3-4.6); Glucose 83 mg/dL (65-115); Osmolality Calculated 294 mOsm/kg (285-295); Potassium 4.7 mmol/L (3.5-5.1); Sodium 141 mmol/L (136-145); Total Protein 6.9 g/dL (6.6-8.7)
== END 2025-04-28 23:59 | disposition home or self-care (01) ==
PROVIDERS: Absent Provider Internal Medicine Cardiovascular Disease; PCP Physician Assistant; Visit Provider Internal Medicine Medical Oncology
DX: Z53.9 Procedure and treatment not carried out, unspecified reason; I82.402 Acute embolism and thrombosis of unspecified deep veins of left lower extremity; R03.0 Elevated blood-pressure reading, without diagnosis of hypertension; D64.9 Anemia, unspecified; D68.51 Activated protein C resistance; I25.10 Atherosclerotic heart disease of native coronary artery without angina pectoris; Z79.01 Long term (current) use of anticoagulants; Z87.891 Personal history of nicotine dependence; Z86.16 Personal history of COVID-19; Z79.899 Other long term (current) drug therapy
CPT/HCPCS: 36415; 80053; 85025; 99214

== ENCOUNTER 2025-05-14 13:16 | Oncology outpatient (recurring) (ONCR) | payer MEDICARE, OTHER, SELFPAY ==
[2025-05-14 13:39] LABS: Hematocrit 34.8 % (36-47); Hemoglobin 10.10 g/dL (11.27-16.99); Mean Corpuscular HGB Conc 29.0 g/dL (30-55); Mean Corpuscular Hemoglobin 26.3 pg (27-33); Mean Corpuscular Volume 90.6 fl (85-98); Nucleated Red Blood Cells % 0 %; Platelet Count 250 10^3/cmm (157-399); Red Blood Count 3.84 10^6/uL (3.85-5.65); White Blood Count 7.73 10^3/uL (3.29-11.43)
== END 2025-05-29 23:59 | disposition home or self-care (01) ==
PROVIDERS: Nurse Practitioner; Absent Provider Internal Medicine Cardiovascular Disease; PCP Physician Assistant; Visit Provider Internal Medicine Medical Oncology
DX: I82.402 Acute embolism and thrombosis of unspecified deep veins of left lower extremity (principal); R03.0 Elevated blood-pressure reading, without diagnosis of hypertension; D64.9 Anemia, unspecified; Z87.891 Personal history of nicotine dependence; Z79.01 Long term (current) use of anticoagulants; Z86.16 Personal history of COVID-19; I25.10 Atherosclerotic heart disease of native coronary artery without angina pectoris
CPT/HCPCS: 85025; 99213